=== PATIENT | female | born 1945 | race Caucasian/White ===

== ENCOUNTER 2018-09-21 22:34 | Emergency (ER) | payer MEDICARE, OTHER ==
[2018-09-21] MEDS ORDERED: LORazepam TAB(*) 1 MG PO ONE (22:55)
[2018-09-21] MEDS ORDERED: Metoprolol Tartrate TAB* 25 MG PO ONE (22:55)
--- NOTE | 2018-09-21 22:56 | ED ---
Palpitations / Dysrhythmia - HPI Summary HPI Summary: Pt is a 73 y/o F presenting to the ED with a chief complaint of her heart beating quickly. She was out to dinner tonight with her family when she felt it onset about 45 minutes ago, and took an Ativan which usually helps alleviate it. It was not going away, so she took her 25mg Metoprolol which she takes daily , but that also has not helped yet. She reports associated dizziness, and states that these spells tend to go away after 15 minutes when she gets them. - History of Current Complaint Chief Complaint: EDDysrhythmPalp Hx Obtained From: Patient Onset/Duration: Sudden Onset, Lasting Minutes - ~45, Still Present Timing: Constant Severity Initially: Moderate Severity Currently: Moderate Character: Fast Aggravating: Nothing Alleviating: Nothing Associated Signs & Symptoms: Dizzy - Allergy/Home Medications Allergies/Adverse Reactions: Allergies Allergy/AdvReac Type Severity Reaction Status Date / Time Sulfa (Sulfonamide Allergy Rash Verified 09/21/18 22:43 Antibiotics) PMH/Surg Hx/FS Hx/Imm Hx Previously Healthy: Yes Cardiovascular History: Denies: Hx Hypertension Psychiatric History: Reports: Hx Anxiety Infectious Disease History: No Infectious Disease History: Denies: Traveled Outside the [place] in Last 30 Days - Family History Known Family History: Negative: Cardiac Disease - Social History Lives: With Family Hx Substance Use: No Substance Use Type: Reports: None Review of Systems Positive: Palpitations Neurological: Other - dizziness All Other Systems Reviewed And Are Negative: Yes Physical Exam - Summary Physical Exam Summary: Appearance: Well-appearing, Well-nourished, lying in bed comfortably Skin: Warm, dry, no obvious rash Eyes: sclera anicteric, no conjunctival pallor ENT: mucous membranes moist, pharynx appears normal Neck: Supple, nontender Respiratory: Clear to auscultation, no signs of respiratory distress Cardiovascular: Normal S1, S2. No murmurs. Normal distal pulses in tibial and radial bilaterally. Abdomen: Soft, nontender, normal active bowel sounds present Musculoskeletal: Normal, Strength/ROM Intact Neurological: A&Ox3, awake and alert, mentation is normal, speech is fluent and appropriate Psychiatric: affect is normal, does not appear anxious or depressed Triage Information Reviewed: Yes Vital Signs On Initial Exam: Initial Vitals Temp Pulse Resp BP Pulse Ox 98.3 F 88 16 187/112 97 05/24/19 22:41 09/21/18 22:41 09/21/18 22:41 09/21/18 22:41 09/21/18 22:41 Vital Signs Reviewed: Yes Diagnostics - Vital Signs Vital Signs Temp Pulse Resp BP Pulse Ox 09/21/18 22:41 98.3 F 88 16 187/112 97 - Laboratory Lab Statement: Any lab studies that have been ordered have been reviewed, and results considered in the medical decision making process. - EKG 2244 Cardiac Rate: NL - 99bpm EKG Rhythm: Sinus Rhythm ST Segment: Normal Ectopy: None Summary of EKG Findings: EKG at 2244 shows NSR at 99bpm with no STEMI. Course/Dx - Course Course Of Treatment: Pt is a 73 y/o F presenting to the ED with a chief complaint of tachycardia. She states it came on about 45 minutes ago and she tried to take Ativan and her Metoprolol 25mg which did not help. The pt reports palpitations with associated dizziness. In the ED course, the pt was given another dose of her Metoprolol 25mg and another dose of her Ativan. EKG at 2244 shows NSR at 99bpm with no STEMI. The pt will be sent home with a dx of palpitations. She is stable and agreeable with this plan. - Diagnoses Provider Diagnoses: Palpitations Discharge - Sign-Out/Discharge Documenting (check all that apply): Patient Departure Patient Received Moderate/Deep Sedation with Procedure: No - Discharge Plan Condition: Good Disposition: HOME Patient Education Materials: Heart Palpitations (ED) Referrals: [facility] [Outside] - Billing Disposition and Condition Condition: GOOD Disposition: Home - Attestation Statements Document Initiated by Meghaibe: Yes Documenting Scribe: Tosha Boucher Provider For Whom Arben is Documenting (Include Credential): Kodak Torres MD. Scribe Attestation: Tosha Thomason scribed for Kodak Torres MD. on 09/25/18 at 2026. Scribe Documentation Reviewed: Yes Provider Attestation: The documentation as recorded by the meghaibe, Tosha Boucher accurately reflects the service I personally performed and the decisions made by me, Kodak Torres MD. Status of Scribe Document: Viewed
[2018-09-21 23:59] VITALS: BP 139/96
== END 2018-09-22 00:01 | disposition home or self-care (01) ==
LOC: ED 22:34
DX: R00.2 Palpitations (principal); Z88.2 Allergy status to sulfonamides; F41.9 Anxiety disorder, unspecified
CPT/HCPCS: 93005; 99282; A9270-GY